=== PATIENT | male | born 1945 | race Caucasian/White ===

== ENCOUNTER 2016-08-01 09:11 | Day surgery (SDC) | payer MEDICARE, BC ==
[~2016-08-01 09:11] MED LIST: CALCIUM CARBON500 M2 PO; CARVEDILOL25 M1 PO; CYCLOBENZAPRINE5 M1 PO; FERROUS GLUCON324 M1 PO; FOLIC ACID1 M1 PO; HYDROCODONE-ACE15 M2 PO; LAMISIL250 M1 PO; METHADONE HCL10 M1 PO; NEURONTIN400 M1 PO; OMEPRAZOLE20 M4 PO; PLAQUENIL200 M1 PO; PREDNISONE10 M1 PO; PRINIVIL10 M1 PO; TYLENOL325 M2 PO; ZOCOR40 M1 PO; ZOLEDRONIC IV
[2017-02-05] MEDS ORDERED: FEROSUL325 M1 PO (11:46)
[2017-02-05] MEDS ORDERED: NORCO 10-325 T1 EACH PO (11:48)
[2017-02-05] MEDS ORDERED: PROTONIX40 M2 PO (11:50)
[2017-02-05] MEDS ORDERED: MULTIVITAMIN (11:52)
== END 2016-08-01 13:46 ==
LOC: SRG 09:11 → SHSC 09:16 → ORE 11:16 → SHSC 12:35
PROC: 01N50ZZ Release Median Nerve, Open Approach (ICD-10-PCS; principal; 2016-08-01)
PROC: 01N40ZZ Release Ulnar Nerve, Open Approach (ICD-10-PCS; 2016-08-01)
PROC: 0MB40ZZ Excision of Left Elbow Bursa and Ligament, Open Approach (ICD-10-PCS; 2016-08-01)
DX: G56.02 Carpal tunnel syndrome, left upper limb (principal); G56.22 Lesion of ulnar nerve, left upper limb; M70.22 Olecranon bursitis, left elbow; I25.2 Old myocardial infarction; I25.10 Atherosclerotic heart disease of native coronary artery without angina pectoris; I10 Essential (primary) hypertension; E78.5 Hyperlipidemia, unspecified; M06.9 Rheumatoid arthritis, unspecified; M19.019 Primary osteoarthritis, unspecified shoulder; H91.90 Unspecified hearing loss, unspecified ear; H52.4 Presbyopia; H26.9 Unspecified cataract; K21.9 Gastro-esophageal reflux disease without esophagitis; Z79.52 Long term (current) use of systemic steroids; Z79.899 Other long term (current) drug therapy; Z88.2 Allergy status to sulfonamides; Z88.5 Allergy status to narcotic agent; Z87.891 Personal history of nicotine dependence; Z95.5 Presence of coronary angioplasty implant and graft; Z98.1 Arthrodesis status; Z98.890 Other specified postprocedural states
CPT/HCPCS: J0690; J2250; J3010